=== PATIENT | male | born 1940 ===

== ENCOUNTER 2022-02-27 08:14 | Observation (INO) ==
[~2022-02-27 08:14] MED LIST: Buffered Lidocaine 1% SYRIN 1 ml INTRADERM ONE; HYDROmorphone 1 MG/1 ML SYRINGE IV PRN; Lactated Ringers 1000 ml BAG 1,000 ML IV SCH; Naloxone 0.4 mg VIAL 0.4 mg/ml 1 ml VIAL IV PRN; Ondansetron 4 mg VIAL 2 MG/ML 2 ml VIAL IV PRN; fentaNYL 100 mcg/2 ml 50 MCG/ML VIAL IV PRN
[2022-02-27] MEDS ORDERED: Lidocaine 2% PF 5 ML VIAL ONE (08:45)
[2022-02-27] MEDS ORDERED: Propofol 10 MG/ML 20 ML BTL ONE ×2 (08:45→12:10)
[2022-02-27] MEDS ORDERED: ceFAZolin 2 GM PREMIX 2 GM/50 ML BAG ONE (09:03)
[2022-02-27] MEDS ORDERED: Dexamethasone IV 4 MG/ML VIAL 1 ml VIAL ONE ×2 (10:07→12:15)
[2022-02-27] MEDS ORDERED: Lidocaine 1% MPF 5 ML VIAL ONE (10:09)
[2022-02-27] MEDS ORDERED: ROPIVACAINE 5 MG/ML 30 ML BTL (0.5%) ONE (10:09)
[2022-02-27] MEDS ORDERED: Ropivacaine 5 MG/ML 20 ML VIAL 0.5% (100 MG) ONE (10:45)
[2022-02-27] MEDS ORDERED: fentaNYL 250 mcg/5 ml 50 MCG/ML 5 ml VIAL (250 MCG) ONE (11:24)
[2022-02-27] MEDS ORDERED: Ketamine HCL 50 mg/ml 10 ml VIAL (500 MG) ONE (11:24)
[2022-02-27] MEDS ORDERED: Phenylephrine IV 10 MG/ML 1 ml VIAL ONE (11:58)
[2022-02-27] MEDS ORDERED: HYDROmorphone 0.5 MG/0.5 ML SYRINGE ONE (12:12)
[2022-02-27] MEDS ORDERED: Ondansetron 4 mg VIAL 2 MG/ML 2 ml VIAL ONE (12:15)
[2022-02-27] MEDS ORDERED: Morphine 2 MG/ML SYRINGE IV PRN (12:21)
[2022-02-27] MEDS ORDERED: Lactulose 30 ml UDC PO PRN (12:21)
[2022-02-27] MEDS ORDERED: Magnesium Hydroxide LIQ 30 ML UDC PO PRN (12:21)
[2022-02-27] MEDS ORDERED: Ondansetron 4 mg VIAL 2 MG/ML 2 ml VIAL IV PRN (12:21)
[2022-02-27] MEDS ORDERED: Ondansetron ODT 4 mg TAB 4 MG TAB PO PRN (12:21)
[2022-02-27] MEDS ORDERED: Acetaminophen IV 1 GM/100ML 1,000 MG/100 ML BAG IV ONE (12:23)
[2022-02-27] MEDS ORDERED: Lactated Ringers 1000 ml BAG 1,000 ML IV SCH (13:00)
[2022-02-27] MEDS: ceFAZolin 1 GM ADVAN 1 GM in NS 0.9% 50 ML 50 ML IVPB SCH (19:51)
[2022-02-27] MEDS: Magnesium Hydroxide LIQ 30 ML UDC PO SCH (21:39)
[2022-02-28] MEDS: ceFAZolin 1 GM ADVAN 1 GM in NS 0.9% 50 ML 50 ML IVPB SCH ×2 (04:20→10:43)
[2022-02-28 05:55] LABS: Hematocrit 33 % (42-52); Hemoglobin 11.5 g/dL (14.0-18.0); Platelet Count 136 10^3/uL (150-450)
[2022-02-28 06:52] LABS: Calcium 8.5 mg/dL (8.6-10.3); Potassium 4.8 mmol/L (3.5-5.0); eGFR CKD-EPI 74.3 (>60)
[2022-02-28 08:12] VITALS: BP 121/66
[2022-02-28] MEDS: Magnesium Hydroxide LIQ 30 ML UDC PO SCH (08:25)
[2022-02-28] MEDS ORDERED: Vitamin THERAPEUTIC TAB PO SCH (09:00)
== END 2022-02-28 11:37 | disposition home or self-care (01) ==
LOC: INTOOBSV 08:14 → AA 08:14 → SSU 16:00
PROVIDERS: ADMIT Orthopaedic Surgery Adult Reconstructive Orthopaedic Surgery; ATTEND Orthopaedic Surgery Adult Reconstructive Orthopaedic Surgery